=== PATIENT | female | born 1985 | race Caucasian/White ===

== ENCOUNTER → 2024-02-04 14:49 | Outpatient (REF) | payer OTHER, SELFPAY | LOC: RCS 14:49 | PROVIDERS: ATTENDING PHYSICIAN Internal Medicine Cardiovascular Disease; FAMILY PHYSICIAN Family Medicine | DX: R07.9 Chest pain, unspecified (principal); Z82.49 Family history of ischemic heart disease and other diseases of the circulatory system | CPT/HCPCS: 93017 ==

== ENCOUNTER 2024-06-25 11:17 | Emergency (ER) | payer BC, SELFPAY ==
[2024-06-25 11:24] VITALS: BP 137/86
[2024-06-25 11:38] VITALS: BMI 24.8
--- NOTE | 2024-06-25 12:13 | ED.GENMED ---
History of Present Illness
General
Chief Complaint: Rabies
Source: patient
Exam Limitations: none
Time Seen by Provider: 06/25/24 11:54
Nursing documentation reviewed up to this point in time: agreed with
History of Present Illness
History of Present Illness:
39-year-old female past medical history of asthma presenting to the emergency department after finding a bat in her house denies any specific symptoms or known exposures.
Review of Systems
Review of Systems
Allergies reviewed?: Yes
All Other Systems: ROS reviewed and negative except as documented in HPI and ROS
Phy Exam
Physical Exam
Physical Exam:
GENERAL: Alert , in no apparent distress
EYE: pupils equal and reactive
NECK: Supple, no significant adenopathy.
ENT: o/p clr, mmm.
CARDIAC: Regular rate and rhythm .
LUNGS: Clear breath sounds bilaterally, no acute respiratory distress, no wheezes/rales/rhonchi
ABDOMEN: Soft, without focal tenderness, no r/g, no cvat
NEUROLOGICAL: Alert and oriented, no focal neuro deficits
SKIN: Warm and dry, skin intact.
MUSCULOSKELETAL: No edema, well perfused.
PSYCH: Normal and appropriate interaction.
Course
Orders/Labs/Results
Orders:
Orders
06/25/24 12:09
Rabies Immune Globulin/Pf [HyperRAB] 1,352 unit IM NOW STA
Rabies Vaccine (Pcec)/Pf [Rabavert Rabies Vacc W-Diluent] 2.5 unit IM .ONCE ONE
Vital Signs
Initial and Last Documented VS:
Initial Vital Signs
Temp Pulse Resp BP Pulse Ox
98.1 F 78 18 137/86 98
06/25/24 11:24 06/25/24 11:24 06/25/24 11:24 06/25/24 11:24 06/25/24 11:24
Last Documented Vital Signs
Temp Pulse Resp BP Pulse Ox
98.1 F 78 18 137/86 98
06/25/24 11:24 06/25/24 11:24 06/25/24 11:24 06/25/24 11:24 06/25/24 11:24
MDM/Problems Addressed
MDM/Problems Addressed:
39-year-old female presenting to the emergency department with concerns of a bat that was in her house overnight. She was told to come to the ER for rabies prophylaxis. Denies any symptoms at this time. Patient was given immunoglobulin and
vaccine otherwise stable for discharge.
*Critical Care Note
Total Time (30-74mins, 75-104mins- exclusive of procedures): Not Applicable
ED Attending Note
-
Portions of this chart may have been created with voice recognition software.� Occasional wrong word or��sound alike� substitutions may have occurred due to the inherent limitations of voice recognition software.
Discharge Plan
Departure
Patient Disposition: Home (Routine Discharge)
Date of Disposition: 06/25/24
Time of Disposition: 12:14
Patient with high blood pressure during this ER visit?: No
Condition: Good
Covid-19: Not Applicable
Discharge Problem:
Exposure to bat without known bite
Instructions: Rabies
Prescriptions:
New
RabAvert (PF) 2.5 unit Suspension For Reconstitution
1 ml IM . DIRECTED Qty: 3 0RF
Rx Instructions:
See Rabies Vaccine Post Exposure Prophylaxis Instruction Sheet for Dosing Instructions
No Action
alprazolam 0.5 MG tablet
0.5 mg PO Q6HPRN PRN (Reason: anxiety)
Referrals:
Neris Alvarado PA [Family Provider] -
Stand Alone Forms: Rabies Vaccine Post Exp Dosing
Activity Restrictions/Additional Instructions:
You came to the emergency department today for rabies prophylaxis. Please follow-up for subsequent vaccines at the infusion center. Return to the emergency department for any worsening, new or concerning symptoms.
Interventions
Interventions:
*Risk Screen - Suicide Last Done: 06/25/24 11:26
*General Assessment Last Done: 06/25/24 11:26
*Neglect/Abuse Screening Last Done: 06/25/24 11:26
*ED COVID-19 Vaccine History Last Done: 06/25/24 11:39
Discharge Date and Time
Print Language: HUNGARIAN
[2024-06-25] MEDS: HyperRAB 1350 UNIT IM (12:40)
[2024-06-25] MEDS: RABAVERT RABIES VACC W-DILUENT 2.5 UNIT IM (12:48)
[2024-06-25 13:12] VITALS: BP 118/86
== END 2024-06-25 13:14 | disposition home or self-care (01) ==
LOC: EMR 11:17
PROVIDERS: EMERGENCY PHYSICIAN Emergency Medicine; FAMILY PHYSICIAN Family Medicine
DX: Z20.3 Contact with and (suspected) exposure to rabies (principal); Z23 Encounter for immunization; Z29.14 Encounter for prophylactic rabies immune globulin; J45.909 Unspecified asthma, uncomplicated
CPT/HCPCS: 99282; 90471; 96372; 90375; 90675

== ENCOUNTER 2024-07-09 15:09 | Outpatient (RCR) | payer BC, SELFPAY ==
[2024-06-29] MEDS: RABAVERT RABIES VACC W-DILUENT 2.5 UNIT IM (15:44)
[2024-07-02] MEDS: RABAVERT RABIES VACC W-DILUENT 2.5 UNIT IM (15:30)
[2024-07-02 15:35] VITALS: BP 104/69
[2024-07-09 15:15] VITALS: BP 113/67
[2024-07-09] MEDS: RABAVERT RABIES VACC W-DILUENT 2.5 UNIT IM (15:28)
== END 2024-07-10 11:35 | disposition home or self-care (01) ==
LOC: OID 15:09
PROVIDERS: ATTENDING PHYSICIAN Emergency Medicine; FAMILY PHYSICIAN Family Medicine
DX: Z20.3 Contact with and (suspected) exposure to rabies (principal); Z23 Encounter for immunization
CPT/HCPCS: 90471; 90675

== ENCOUNTER → 2025-02-23 09:45 | Outpatient (REF) | payer BC, SELFPAY | LOC: HWRAD 09:45 | PROVIDERS: ATTENDING PHYSICIAN Student in an Organized Health Care Education/Training Program; FAMILY PHYSICIAN Family Medicine | DX: R10.2 Pelvic and perineal pain (principal) | CPT/HCPCS: 76830; 76856 ==